=== PATIENT | female | born 1990 | race Caucasian/White ===

== ENCOUNTER 2020-09-16 07:24 | Outpatient (CLI) | payer OTHER ==
[2020-09-16 08:56] LABS: BASOPHILS % (AUTO) 0.7 % (0.0-2.0); EOSINOPHILS # (AUTO) 0.1 K/uL (0-0.4); EOSINOPHILS % (AUTO) 1.5 % (0.0-4.0); HEMATOCRIT 41.2 % (36-48); HEMOGLOBIN 13.7 g/dL (12.0-16.0); LYMPHOCYTES % (AUTO) 44.6 % (20.5-51.1); MEAN CORPUSCULAR HEMOGLOBIN 31 pg (27-31); MEAN CORPUSCULAR HGB CONC 33 g/dL (33-37); MEAN CORPUSCULAR VOLUME 94.1 fL (80-94); MONOCYTES # (AUTO) 0.4 K/uL (0.8-1.0); MONOCYTES % (AUTO) 9.7 % (1.7-9.3); NEUTROPHILS # (AUTO) 1.9 K/uL (1.8-7.7); NEUTROPHILS % (AUTO) 43.5 % (42.2-75.2); PLATELET COUNT (AUTO) 248 K/uL (140-450); RED BLOOD CELL COUNT(AUTO) 4.38 MIL/uL (4.20-5.40); RED CELL DISTRIBUTION WIDTH 12.7 % (11.6-13.7); WHITE BLOOD COUNT (AUTO) 4.4 K/uL (4.8-10.8)
[2020-09-16 09:36] LABS: CHOL/HDL RATIO 2.3 (1-4.5); THYROID STIMULATING HORMONE 1.54 uIU/mL (0.34-3.74)
[2020-09-17 07:07] LABS: T4 FREE (DIRECT) 1.2 ng/dL (0.82-1.77)
== END 2020-09-16 20:32 | disposition home or self-care (01) ==
LOC: MLB 07:24
PROVIDERS: ATTEND Hospitalist
DX: R42 Dizziness and giddiness (principal)
CPT/HCPCS: 36415; 82306; 82728; 83036; 83540; 84439; 84443; 85025

== ENCOUNTER 2023-04-23 09:59 | Outpatient (CLI) | payer OTHER ==
[2023-04-23 10:50] LABS: BASOPHILS % (AUTO) 0.9 % (0.0-2.0); EOSINOPHILS % (AUTO) 0.4 % (0.0-4.0); HEMOGLOBIN 11.7 g/dL (12.0-16.0); LYMPHOCYTES # (AUTO) 1.6 K/uL (2.5-16.5); LYMPHOCYTES % (AUTO) 33.6 % (20.5-51.1); MEAN CORPUSCULAR HEMOGLOBIN 32 pg (27-31); MEAN CORPUSCULAR HGB CONC 34 g/dL (33-37); MEAN CORPUSCULAR VOLUME 95.1 fL (80-94); MONOCYTES # (AUTO) 0.4 K/uL (0.8-1.0); MONOCYTES % (AUTO) 9.3 % (1.7-9.3); NEUTROPHILS # (AUTO) 2.6 K/uL (1.8-7.7); NEUTROPHILS % (AUTO) 55.8 % (42.2-75.2); PLATELET COUNT (AUTO) 226 K/uL (140-450); RED BLOOD CELL COUNT(AUTO) 3.68 MIL/uL (4.20-5.40); RED CELL DISTRIBUTION WIDTH 12.5 % (11.6-13.7); WHITE BLOOD COUNT (AUTO) 4.6 K/uL (4.8-10.8)
[2023-04-23 10:55] LABS: APPEARANCE,URINE CLEAR (CLEAR); BILIRUBIN,URINE NEGATIVE (NEGATIVE); BLOOD, URINE 2+ (NEGATIVE); COLOR,URINE YELLOW (YELLOW); LEUKOCYTE ESTERASE ,URINE NEGATIVE (NEGATIVE); NITRITE, URINE NEGATIVE (NEGATIVE); PH,URINE 7.5 (5.0-9.0); PROTEIN,URINE TRACE (NEGATIVE); UGLUCOSE NEGATIVE (NEGATIVE)
[2023-04-23 11:06] LABS: BACTERIA,URINE 1+ /HPF (None Seen); RBC,URINE 0-5 /HPF (0-5); WBC,URINE 0-5 /HPF (0-5)
[2023-04-24 13:08] LABS: RAPID PLASMA REAGIN NON-REACTIVE (Non Reactiv)
== END 2023-04-23 17:57 | disposition home or self-care (01) ==
LOC: MLB 09:59
PROVIDERS: ATTEND Obstetrics & Gynecology
DX: Z34.82 Encounter for supervision of other normal pregnancy, second trimester (principal)
CPT/HCPCS: 36415; 81001; 84702; 85025; 86592; 86706; 86762; 86886; 86900; 86901; 87086; 87491

== ENCOUNTER 2023-04-27 10:21 | Outpatient (CLI) | payer OTHER | END 2023-04-27 21:00 | disposition home or self-care (01) | LOC: MLB 10:21 | PROVIDERS: ATTEND Obstetrics & Gynecology | DX: O20.0 Threatened abortion (principal); Z3A.09 9 weeks gestation of pregnancy | CPT/HCPCS: 36415; 76801; 84702; Q0092 ==

== ENCOUNTER 2024-06-16 16:10 | Emergency (ER) | payer OTHER ==
[~2024-06-16] VITALS: Ht 154.9 cm; Wt 66.7 kg
[2024-06-16 16:28] VITALS: BP 130/88; PULSE 72; RESP 16; TEMP 98.7; O2SAT 100
[2024-06-16] MEDS ORDERED: CLIN300C2 PO (20:35)
[2024-06-16] MEDS: KETOROLAC 60 MG/2 ML VIAL IM ONE (21:08)
== END 2024-06-16 21:30 | disposition home or self-care (01) ==
LOC: MED 16:10
DX: T81.49XA Infection following a procedure, other surgical site, initial encounter (principal); M79.10 Myalgia, unspecified site
CPT/HCPCS: 81025; 96372; 99283; J1885